=== PATIENT | male | born 1995 | race African-American/Black ===

== ENCOUNTER 2019-08-21 23:09 | Emergency (ER) | payer SELFPAY | END 2019-08-21 23:28 | LOC: ERS 23:09 | DX: Z04.1 Encounter for examination and observation following transport accident (principal); F17.210 Nicotine dependence, cigarettes, uncomplicated; V89.2XXA Person injured in unspecified motor-vehicle accident, traffic, initial encounter | CPT/HCPCS: 99284 ==